=== PATIENT | female | born 1995 | race Hispanic/Latino ===

== ENCOUNTER 2021-08-08 16:07 | Outpatient (CLI) | payer OTHER | END 2021-08-08 16:08 | disposition home or self-care (01) | LOC: BICRAD 16:07 | PROVIDERS: ATTEND Nurse Practitioner Family | DX: S89.92XA Unspecified injury of left lower leg, initial encounter (principal) ==

== ENCOUNTER 2021-10-31 10:15 | Outpatient (CLI) | payer BC | END 2021-10-31 10:16 | disposition home or self-care (01) | LOC: MRI 10:15 | PROVIDERS: ATTEND Nurse Practitioner Family | DX: S89.92XD Unspecified injury of left lower leg, subsequent encounter (principal) ==